=== PATIENT | female | born 1935 | race Two or more races ===

== ENCOUNTER 2023-08-23 13:07 | Inpatient (IN) | payer MEDICARE, OTHER, SELFPAY ==
[2023-08-23] VITALS (7 sets, daily range): BP systolic 139–222; BP diastolic 57–76; BMI 23.0
--- NOTE | 2023-08-23 12:55 | W.PN.CARDCBS ---
Addendum entered and electronically signed by Lawrence Kulkarni MD 08/23/23 16:00:
Patient seen and examined
Agree with SALES TRAINER note and assessment
Agree with SALES TRAINER plan
Examination:
Nonfocal neurologically
Alert and oriented x 3
Cor regular no murmur
Lungs clear to auscultation bilaterally
Abdomen soft nontender positive bowel sounds
Impression:
Symptomatic bradycardia
Tachy-abdulaziz syndrome
PAF - [id number] =5
CAD/IN 06/16/2016 post PCI prox RCA and mid LCx
uncontrolled HTN - did not take am meds
HLD
Chronic HFpEF
GERD
DM2
KENYETTA
Depression
Hypothyroidism d/t amiodarone
Vitamin D deficiency
Osteoarthritis
Hyponatremia
Cholelithiasis
Mild AR, TR and pulmonary HTN
CKD3a
Plan:
Admit IVU post PPM
CXR and IV Abx post device
Tachy-Abdulaziz syndrome/AFib - holding Amiodarone 100 bid and carvedilol 3.125 bid, resume post device
Resume Eliquis 2.5 bid post procedure per cards recs
DM2 - Hold Metformin 48 hours post venogram/iv contrast, SSI while in hospital, Check A1c
CKD3a - Cr 1.1, GFR 49 will trend after procedure
HLD -continue atorvastatin
HTN - BP elevated prior to transfer, did not take AM meds, will resume post procedure, continue losartan 25 bid, hydralazine 25 bid, isosorbide 30 daily
Hyponatremia - Na 126, will trend
Activity restrictions reviewed with son
inc check [place] 1 week
Original Note:
Today's Communication / Plan
-
Pacemaker today
Impression / Plan
-
This is a summary, see scanned H&P
PCP: Sepideh Lantigua MD
CDY: Timmy Peterson MD
87 yo German female h/o PAF on amiodarone and Eliquis, HTN, CAD/[place] PCI RCA/LCx 06/16/2016, HLD, KENYETTA, CHF, CKD 3a who developed dizziness and weakness this morning. Her son checked her pulse and it was 30 and he brought her to ER. She denies
syncope. She was given atropine, BP remained elevated 160-180's. EKG with JR HR in 30's. She is transferred today for PPM placement for tachy-abdulaizz syndrome. Last dose of Eliquis was last evening.
08/01/2023 ECHO - LVEF 50-55%, mod dil LA, mild MR, AR, mild-mod TR, RVSP 40mmHg, mod VA, inferior WMA
Impression:
Symptomatic bradycardia
Tachy-abdulaziz syndrome
PAF - [id number] =5
CAD/IN 06/16/2016 post PCI prox RCA and mid LCx
uncontrolled HTN - did not take am meds
HLD
Chronic HFpEF
GERD
DM2
KENYETTA
Depression
Hypothyroidism d/t amiodarone
Vitamin D deficiency
Osteoarthritis
Hyponatremia
Cholelithiasis
Mild AR, TR and pulmonary HTN
CKD3a
Plan:
Admit IVU post PPM
CXR and IV Abx post device
Tachy-Abdulaziz syndrome/AFib - holding Amiodarone 100 bid and carvedilol 3.125 bid, resume post device
Resume Eliquis 2.5 bid post procedure per cards recs
DM2 - Hold Metformin 48 hours post venogram/iv contrast, SSI while in hospital, Check A1c
CKD3a - Cr 1.1, GFR 49 will trend after procedure
HLD -continue atorvastatin
HTN - BP elevated prior to transfer, did not take AM meds, will resume post procedure, continue losartan 25 bid, hydralazine 25 bid, isosorbide 30 daily
Hyponatremia - Na 126, will trend
Activity restrictions reviewed with son
inc check [place] 1 week
Progress Note - Student Teaching Coordinator
Subjective
Date of Service: August 23, 2023
no cp, sob
Physical Exam
Physical Exam
NAD< AOx3 per son oral and maxillofacial surgery resident at bedside
S1, S2, RRR
fine LLL crackles, cleared with deep inspiration, no wheeze
SNTND bsx4
No LE edema
--- NOTE | 2023-08-23 13:59 | VATNOTE ---
Attempts to place IV in left arm unsuccessful, another VAT nurse to attempt.
--- NOTE | 2023-08-23 14:08 | W.PN.UPDATE ---
Update Note
Progress Note Update
Please see full note to follow. We have requested records from the emergency department at [facility]. I have had phone conversations with Dr. Nunez as well as conversations with patient and son. Her son Sayid is an electrical subcontractor
and works locally. She has symptomatic bradycardia with junctional rhythm in the 40s although normotensive and has felt unwell for a few weeks. She requires amiodarone therapy and beta-angely therapy both for coronary artery disease and atrial
arrhythmias. She also has multivessel coronary artery disease at last cardiac catheterization. July 2023 ejection fraction is greater than 50% with ejection fraction 51% with mild to moderate TR and mild pulmonary hypertension. Aortic valve is
sclerotic but not stenotic.
I described pacemaker implant to son and patient including 1 of thousand risk of NH stroke and and a 1% risk of pneumothorax tamponade infection or bleeding. She took her blood thinner yesterday but not today and and ate a small breakfast at
8 AM so we waited till after 2 PM to sedate to mitigate risk. Will plan dual-chamber pacemaker on the left side. She is right-handed.
[2023-08-23 14:11] LABS: Glucose - Point of Care 126 mg/dl (70-99)
--- NOTE | 2023-08-23 16:00 | ITS.CL.PACE ---
Floor Coverer Apprentice - Pacemaker Implant
Pacemaker Implant
Procedure Report:
Date of Procedure: August 23, 2023
Patient : [id number]
Procedure: Pacemaker Implantation.
Indication: Sinus arrest with junctional escape and near syncope
Copy: Dr. Timmy Peterson
Implants:�
Pulse Generator: Medtronic; Model# W1 DR 01; SN: [id number]
RA Lead: Medtronic; Model# [id number]; SN: [id number]
RV Lead: Medtronic; Model# [id number]; SN: [id number]
�
Technique: A time out was performed. Please see separate H&P for full details of medical care prior to transfer. The procedure site was identified. The patient was anesthetized by the anesthesia service. Preoperative sedation was administered. The
patient was prepped and draped in the usual fashion. Local anesthetic was applied to the left prepectoral subcutaneous tissue. A 3 inch incision was made 2.5 inches below the left clavicle. A subcutaneous pocket was created with blunt and sharp
dissection and hemostasis controlled with Bovie cautery. The left axillary vein was accessed within the pocket without difficulty. Hemostasis was excellent. The leads were introduced with 7 Fr hemostatic peel away introducer sheaths. The ventricular
lead was placed at the right ventricular apex. The atrial lead was placed
in the right atrial appendage. The right atrium and diffuse low atrial voltage and elevated thresholds throughout multiple areas of mapping and ultimately acceptable parameters in the lateral RA right atrial appendage. 10 volt pacing did not
capture the diaphragm. The leads were secured to the pectoralis muscle and fascia. The leads were appropriately attached to the device. The pocket was irrigated with antibiotic solution. The device and leads were placed in the pocket. The incision
was closed in three layers with absorbable suture. The estimated blood loss was minimal. There were no complications.��
Fluoroscopy: 5.1 minutes and 12 mGy
Lead Analysis:
RA lead: P: 1.9 mV; Threshold: 0.75 V @ 0.5� ms; Impedance: 741 ohms.
RV lead: R: 9 mV; Threshold: 0.5 V @ 0.5� ms; Impedance: 1026 ohms.
�
Final Programming: AAIR�DDDR 60-130 beats a minute
�
Conclusion: Uncomplicated Medtronic pacemaker implant.
�
Recommendation: Routine post pacemaker care. Resume amiodarone and metoprolol therapy. Resume oral anticoagulation tomorrow evening. Outpatient follow-up with primary software configuration specialist
�
[2023-08-23 16:40] LABS: Glucose - Point of Care 135 mg/dl (70-99)
[2023-08-23] MEDS: IMDUR (EXTENDED RELEASE) 30 MG PO (16:46)
--- NOTE | 2023-08-23 18:18 | PTCARENOTE ---
Pt from [facility] admitted from labor law professor post pacemaker placement in left anterior chest. Dressing dry and intact, no sign of bleeding or hematoma, immobilizer in place. Pt denies any discomfort, activity restrictions explained with help of pt's son who
speaks fluent Malian. Pt voiding very clear yellow urine initially very frequently. Telemetry shows AV paced rhythm.
[2023-08-23] MEDS: COREG 3.125 MG PO (19:59)
[2023-08-23] MEDS: COZAAR 50 MG PO (20:01)
[2023-08-23] MEDS: APRESOLINE 25 MG PO (20:02)
[2023-08-23] MEDS: TYLENOL 650 MG PO (20:02)
[2023-08-23] MEDS: PACERONE 100 MG PO (20:02)
[2023-08-23 21:50] LABS: Glucose - Point of Care 148 mg/dl (70-99)
[2023-08-23] MEDS: LIPITOR 40 MG PO (22:20)
[2023-08-23] MEDS: ANCEF 5 IV (22:20)
--- NOTE | 2023-08-23 23:54 | PTCARENOTE ---
Received pt at handoff. L chest wall w/ Aquacel c/d/i. Immobilizer in place. Pt aware of activity restrictions. Family at bedside to translate. Pt able to ambulate from bed to wheelchair w/ x2 assist. CXR completed. Pt c/o 04/14 pain at PPM incision
site. Tylenol administered. Currently in bed; call damir w/in reach.
[2023-08-24 04:54] VITALS: BP 170/61
[2023-08-24] MEDS: ANCEF 5 IV (05:12)
[2023-08-24] MEDS: SYNTHROID 75 MCG PO (05:13)
[2023-08-24] MEDS: TYLENOL 650 MG PO ×2 (05:34→08:54)
[2023-08-24 05:38] LABS: Hematocrit 36.3 % (37.0-47.0); Mean Corp Hgb Conc. 35.8 g/dL (33.0-37.0); Mean Corpuscular Volume 86.4 fL (81.0-99.0); Mean Platelet Volume 9.9 fL (7.4-10.4); Platelet Count 241 10^3/uL (130-400); Red Cell Dist. Width 14.2 % (11.5-14.5); White Blood Cell Count 9.9 10^3/uL (4.8-10.8)
[2023-08-24 05:57] LABS: Blood Urea Nitrogen 22 mg/dl (7-17); Calcium 9.5 mg/dl (8.4-10.2); Carbon Dioxide 26 mmol/L (22-30); Chloride 97 mmol/L (98-107); Estimated Creatinine Clearance 33 ml/min; Glucose 114 mg/dl (70-99); Magnesium 2.1 mg/dl (1.6-2.3); Potassium 5.2 mmol/L (3.5-5.1); Sodium 129 mmol/L (135-145); eGFR 55.21
--- NOTE | 2023-08-24 08:02 | W.PN.CARDCBS ---
Addendum entered and electronically signed by Lawrence Kulkarni MD 08/24/23 10:48:
Agree with CHIEF SUBSTATION OPERATOR note and assessment
Agree with CHIEF SUBSTATION OPERATOR plan
Review of chest x-ray demonstrates stable atrial and ventricular leads at 9 PM last night
ECG last evening and at 5 AM this morning demonstrates appropriate atrial pacing and sensing.
Interestingly watching telemetry I noticed occasional loss of atrial capture every 2 to 3 minutes for a few beats and then resumption of appropriate pacing. We reinterrogated the device demonstrating appropriate atrial sensing with a P wave of 1.6
and a threshold between 3 to 4 V at 0.5 ms. We adjusted the output of the lead to 5 V at 1 ms. This led to sustained atrial capture with continued appropriate sensing. The patient feels markedly well post pacemaker implant.
Examination:
Telemetry as above
Left deltopectoral groove wound site clean dry and intact
Chest x-ray demonstrates leads in the right atrial appendage and right ventricle
Cor regular
Alert and oriented x 3
No extremity edema
IMPRESSION:
Symptomatic bradycardia
Tachy-lucila syndrome
S/P Dual chamber PPM implant, 08/24/23
PAF - [id number] =5
CAD/[place] 06/16/2016 post PCI prox RCA and mid LCx
uncontrolled HTN
HLD
Chronic diastolic HFpEF, 50-55%
GERD
DM2
KENYETTA
Depression
Hypothyroidism d/t amiodarone
Vitamin D deficiency
Osteoarthritis
Hyponatremia
Cholelithiasis
Mild AR, TR and pulmonary HTN
CKD3a
PLAN:
Tele- A/AV paced 60s
device site stable
post cxr w/stable lead position, no pneumothorax
Both amio and coreg resumed last evening
Eliquis on hold post op- will restart tonight
Hold metformin post dye load- ok to restart Sun 08/25 in AM
Creat stable post dye load
modestly elevated BP as before- meds restarted today- management per PCP
Hyponatremia - Na+ 126- now up to 129- stable, managed per PCP
Activity restrictions reviewed with son
incision check at [facility] in 1 week, follow with Dr. Peterson thereafter
Adjusted atrial lead output as above
Home today
Original Note:
Today's Communication / Plan
-
activity restrictions reviewed
resume all meds as before
incision check next week
follow with PCP for BP management
Impression / Plan
-
PCP: Sepideh Lantigua MD
CDY: Timmy Peterson MD
87 yo Turkish female h/o PAF on amiodarone and Eliquis, HTN, CAD/[place] PCI RCA/LCx 06/16/2016, HLD, KENYETTA, CHF, CKD who developed dizziness and weakness. Her son checked her pulse and it was 30 and he brought her to [facility] ER. She denies syncope. She was
given atropine, BP remained elevated 160-180's. EKG with JR HR in 30's. She is transferred today for PPM placement for tachy-lucila syndrome. Last dose of Eliquis was last evening.
08/01/2023 ECHO - LVEF 50-55%, mod dil LA, mild MR, AR, mild-mod TR, RVSP 40mmHg, mod [place], inferior WMA
IMPRESSION:
Symptomatic bradycardia
Tachy-lucila syndrome
S/P Dual chamber PPM implant, 08/24/23
PAF - [id number] =5
CAD/[place] 06/16/2016 post PCI prox RCA and mid LCx
uncontrolled HTN
HLD
Chronic diastolic HFpEF, 50-55%
GERD
DM2
KENYETTA
Depression
Hypothyroidism d/t amiodarone
Vitamin D deficiency
Osteoarthritis
Hyponatremia
Cholelithiasis
Mild AR, TR and pulmonary HTN
CKD3a
PLAN:
Tele- A/AV paced 60s
device site stable
post cxr w/stable lead position, no pneumothorax
Both amio and coreg resumed last evening
Eliquis on hold post op- will restart tonight
Hold metformin post dye load- ok to restart Sun 08/25 in AM
Creat stable post dye load
modestly elevated BP as before- meds restarted today- management per PCP
Hyponatremia - Na+ 126- now up to 129- stable, managed per PCP
Activity restrictions reviewed with son
incision check at [facility] in 1 week, follow with Dr. Peterson thereafter
Home today
Progress Note - Stonework Supervisor
Subjective
Date of Service: August 24, 2023
Denies cp/palps/dyspnea
oob ambulating
device site stable
Objective
Labs:
08/24/23 05:23
08/24/23 05:23
Labs
Hgb 13.0 g/dL (12.0-16.0) 08/24/23 05:23
Hct 36.3 % (37.0-47.0) L 08/24/23 05:23
Plt Count 241 10^3/uL (130-400) 08/24/23 05:23
Sodium 129 mmol/L (135-145) L 08/24/23 05:23
Potassium 5.2 mmol/L (3.5-5.1) H 08/24/23 05:23
BUN 22 mg/dl (7-17) H 08/24/23 05:23
Creatinine 1.0 mg/dL (0.6-1.0) 08/24/23 05:23
Glucose 114 mg/dl (70-99) H 08/24/23 05:23
Vital Signs and I&O:
Vital Signs
Temp Pulse Resp BP Pulse Ox
98.4 F 64 16 170/61 95
08/24/23 04:54 08/24/23 05:30 08/24/23 04:54 08/24/23 04:54 08/24/23 04:54
Vital Signs
Temp Pulse Resp BP Pulse Ox
98.4 F 64 16 170/61 95
08/24/23 04:54 08/24/23 05:30 08/24/23 04:54 08/24/23 04:54 08/24/23 04:54
Intake & Output
08/22/23 08/23/23 08/24/23 08/25/23
06:59 06:59 06:59 06:59
Intake Total 240 / 240
Output Total 300 / 300
Balance -60 / -60
Physical Exam
Physical Exam
AAOx3, MAEE 5/5
RRR S1 S2 no murmurs
CTA bilat, non labored
Left ACW w/aquacel dressing CDI, no ht/bleeding, non tender
soft abd, + bs
bilat extremities w/palpable distal pulses, no edema
[2023-08-24 08:03] VITALS: BP 150/64
[2023-08-24 08:07] LABS: Glucose - Point of Care 118 mg/dl (70-99)
[2023-08-24] MEDS: APRESOLINE 25 MG PO (08:52)
[2023-08-24] MEDS: PROTONIX 40 MG PO (08:52)
[2023-08-24] MEDS: IMDUR (EXTENDED RELEASE) 30 MG PO (08:52)
[2023-08-24] MEDS: PACERONE 100 MG PO (08:53)
[2023-08-24] MEDS: COREG 3.125 MG PO (08:53)
[2023-08-24] MEDS: COZAAR 50 MG PO (08:53)
--- NOTE | 2023-08-24 10:09 | W.DS.TRANS ---
DC Summary - Claims Service Representative
-
Discharge Instructions:
Sleep Apnea Risk Low
Discharge Diagnosis/Procedures Pacemaker implant
Diet Low Cholesterol,Diabetic, Carb Controlled
Driving Restrictions No driving for 1 week
Bathing Restrictions OK to Shower
Instructions:
Stand-Alone Forms: DC Inst - Implanted Device
Changes to Home Medications: No
Discharge Medications:
DC Medications w/original date entered in [facility]
amiodarone 100 mg tablet 100 mg PO BID Arrhythmia 08/23/23
apixaban 2.5 mg tablet 5 mg PO BID Blood Clot Prevention/Tx 08/23/23
atorvastatin 40 mg tablet 40 mg PO HS High Cholesterol 08/23/23
bumetanide 1 mg tablet 1 mg PO MOWEFR Fluid Retention/Swelling 08/23/23
carvedilol 3.125 mg tablet 3.125 mg PO BID Blood Pressure 08/23/23
cholecalciferol (vitamin D3) 25 mcg (1,000 unit) capsule 25 mcg PO DAILY Supplement 08/23/23
docusate sodium 100 mg capsule 100 mg PO BID PRN CONSTIPATION 08/23/23
ferrous sulfate 325 mg (65 mg iron) tablet 325 mg PO DAILY Supplement 08/23/23
hydralazine 25 mg tablet 25 mg PO BID Blood Pressure 08/23/23
isosorbide mononitrate 30 mg tablet,extended release 24 hr 30 mg PO DAILY Heart Disease/Condition 08/23/23
levothyroxine 75 mcg tablet 75 mcg PO DAILY Thyroid 08/23/23
losartan 50 mg tablet 50 mg PO BID Blood Pressure 08/23/23
metformin 500 mg tablet,extended release 24 hr 500 mg PO DAILY Diabetes 08/23/23
metoclopramide HCl 10 mg tablet 10 mg PO ACHS PRN VOMITING 08/23/23
nitroglycerin 0.4 mg sublingual tablet 0.4 mg sublingual Q5-15M PRN CHEST PAIN 08/23/23
omeprazole 20 mg capsule,delayed release 20 mg PO DAILY Gastrointestinal Issue 08/23/23
Home Medication Changes
Pending Results: No
--- NOTE | 2023-08-24 10:39 | CM ---
Reviewed chart. Met with Mrs. Dennis and her son to review discharge plans. Son states prior to admission she resides with her son and his family in a second floor apartment. He states prior to admission he ambulates with a single point cane. Most
of the time she holds on to her son for ambulation. He states she has walker, single point cane, wheelchair and Shower chair. He states she was getting a [facility] Services from [facility]. He is agreeable to resuming their services.
Telephone call to [facility] to make the referral. Sent the referral. He states she has prescription plan. Medical work-up in progress. The discharge plan is to return home with her family and resumption of [facility] when
medically stable.
[2023-08-24 11:13] VITALS: BP 172/65
[2023-08-24 11:45] LABS: Glucose - Point of Care 130 mg/dl (70-99)
--- NOTE | 2023-08-24 13:07 | PTCARENOTE ---
Pt seen by and Valeri Brown, JOE. Telemetry and IV devices removed. Pt bathed. Pt walking in room with walker with assistance of one. Telemetry and IV devices removed. Discharge instructions reviewed with pt and her son who speaks fluent
Korean. Pain management, wound care, activity restrictions, medications, reporting cares and concerns and follow up appts all discussed. Very good understanding demonstrated. Pt escorted out via wheelchair and discharged to home.
== END 2023-08-24 13:00 | disposition home health service (06) | DRG 243 ==
LOC: IVU 13:07
PROVIDERS: Nurse Practitioner Adult Health; ADMITTING PHYSICIAN Internal Medicine Cardiovascular Disease; FAMILY PHYSICIAN Family Medicine
PROC: 0JH606Z Insertion of Pacemaker, Dual Chamber into Chest Subcutaneous Tissue and Fascia, Open Approach (ICD-10-PCS; 2023-08-23)
PROC: 02HK3JZ Insertion of Pacemaker Lead into Right Ventricle, Percutaneous Approach (ICD-10-PCS; 2023-08-23)
PROC: 02H63JZ Insertion of Pacemaker Lead into Right Atrium, Percutaneous Approach (ICD-10-PCS; 2023-08-23)
DX: R00.1 Bradycardia, unspecified (principal); E87.1 Hypo-osmolality and hyponatremia; I13.0 Hypertensive heart and chronic kidney disease with heart failure and stage 1 through stage 4 chronic kidney disease, or unspecified chronic kidney disease; I50.32 Chronic diastolic (congestive) heart failure; I49.5 Sick sinus syndrome; I48.0 Paroxysmal atrial fibrillation; I25.10 Atherosclerotic heart disease of native coronary artery without angina pectoris; E11.22 Type 2 diabetes mellitus with diabetic chronic kidney disease; N18.31 Chronic kidney disease, stage 3a; E78.5 Hyperlipidemia, unspecified; K21.9 Gastro-esophageal reflux disease without esophagitis; D50.9 Iron deficiency anemia, unspecified; F32.A Depression, unspecified; E03.9 Hypothyroidism, unspecified; E55.9 Vitamin D deficiency, unspecified; M19.90 Unspecified osteoarthritis, unspecified site; K80.20 Calculus of gallbladder without cholecystitis without obstruction; I27.20 Pulmonary hypertension, unspecified; I08.2 Rheumatic disorders of both aortic and tricuspid valves; I25.2 Old myocardial infarction; Z98.61 Coronary angioplasty status
CPT/HCPCS: 33208; 71045; 80048; 82962; 83036; 83735; 85027; 87070; 93005; C1785; C1892; C1898; Q9967